=== PATIENT | female | born 1945 | race African-American/Black ===

== ENCOUNTER 2019-04-01 13:38 | Emergency (ER) | payer MEDICARE ==
[~2019-04-01] VITALS: Ht 170.2 cm; Wt 81.0 kg
[2019-04-01 13:52] VITALS: BP 162/93
[2019-04-01] MEDS ORDERED: TETRACAINE 0.5% OPHTH DROPS 4ML LEFTEYE ONE (16:15)
[2019-04-01] MEDS ORDERED: FLUORESCEIN SODIUM 1MG/STRIP LEFTEYE ONE (16:15)
== END 2019-04-01 17:34 | disposition home or self-care (01) ==
LOC: ER 13:38
DX: S01.112A Laceration without foreign body of left eyelid and periocular area, initial encounter (principal); H16.002 Unspecified corneal ulcer, left eye; E78.00 Pure hypercholesterolemia, unspecified; I10 Essential (primary) hypertension; Z90.710 Acquired absence of both cervix and uterus; X58.XXXA Exposure to other specified factors, initial encounter; Y93.89 Activity, other specified; Y92.89 Other specified places as the place of occurrence of the external cause; Y99.8 Other external cause status
CPT/HCPCS: 99283